=== PATIENT | male | born 1960 | race Caucasian/White ===

== ENCOUNTER 2021-07-18 14:08 | Inpatient (IN) ==
[2021-07-18] MEDS ORDERED: CeFAZolin Syr 2,000MG/20 ML 2,000 MG/20 ML SYRINGE IVPB ONE (14:36)
[2021-07-18] MEDS ORDERED: *HR* Succinylcholine 200 MG/10 ML VIAL IVP ONE (14:44)
[2021-07-18] MEDS ORDERED: *HR* FentaNYL (PF) 100 MCG/2 ML VIAL ONE ×2 (14:44→14:50)
[2021-07-18] MEDS ORDERED: *HR* Propofol 200 MG/20 ML VIAL IVP ONE ×2 (14:44→14:50)
[2021-07-18] MEDS ORDERED: Lidocaine -MPF 2% 2 ML VIAL ONE ×2 (14:44→14:52)
[2021-07-18] MEDS ORDERED: *HR* Midazolam HCl 2 MG/2 ML VIAL ONE ×2 (14:44→14:50)
[2021-07-18] MEDS ORDERED: *HR* Rocuronium Bromide 50 MG/5 ML VIAL ONE ×2 (14:44→14:52)
[2021-07-18] MEDS: Ringers Solution, Lactated 1,000 ML IVC SCH ×2 (14:45→18:37)
[2021-07-18] MEDS ORDERED: Acetaminophen IV 1,000 MG/100 ML BAG IVPB ONE (14:53)
[2021-07-18] MEDS ORDERED: Gabapentin 300 MG CAPSULE PO ONE (14:53)
[2021-07-18] MEDS ORDERED: Lidocaine -MPF 4% 5 ML AMPUL ONE (14:53)
[2021-07-18] MEDS ORDERED: Famotidine 20 MG/2 ML VIAL IVP ONE (14:53)
[2021-07-18] MEDS ORDERED: Ondansetron 4 MG/2 ML VIAL IVP PRN ×2 (15:01→20:48)
[2021-07-18] MEDS ORDERED: *HR* Heparin 5,000 UNIT/ML VIAL ONE (15:03)
[2021-07-18] MEDS ORDERED: Lidocaine 1% 20 ML MDV ONE (15:03)
[2021-07-18] MEDS ORDERED: Ondansetron 4 MG/2 ML VIAL ONE (16:34)
[2021-07-18] MEDS ORDERED: Sugammadex Sodium 200 MG/2 ML VIAL IV ONE (17:01)
[2021-07-18] MEDS: *HR* Labetalol 20 MG/4 ML SYRINGE IVP PRN ×4 (18:03→18:57)
[2021-07-18] MEDS: *HR* HYDROmorphone PF 0.5 MG/0.5 ML SYRINGE IVP PRN ×2 (18:05→18:42)
[2021-07-18] MEDS ORDERED: Naloxone 0.4 MG/ML INJ IVP PRN (20:48)
[2021-07-18] MEDS ORDERED: 0.9 % Sodium Chloride 1,000 ML IVC SCH (20:48)
[2021-07-18] MEDS ORDERED: Ipratropium/Albuterol Neb 3 ML ONE (20:57)
[2021-07-18] MEDS: Ipratropium/Albuterol Neb 3 ML IH SCH (20:59)
[2021-07-18] MEDS: Sennosides/Docusate Sodium TABLET PO SCH (21:21)
[2021-07-18] MEDS: Famotidine 20 MG TABLET PO SCH (21:21)
[2021-07-18] MEDS: *HR* LORazepam 0.5 MG TABLET PO SCH (21:21)
[2021-07-18] MEDS: Gabapentin 300 MG CAPSULE PO SCH (21:21)
[2021-07-18] MEDS: *HR* Heparin 5,000 UNIT/ML VIAL SQ SCH (21:22)
[2021-07-18] MEDS: *HR* HYDROcodone/Acet 5/325 mg TABLET PO PRN (21:22)
[2021-07-18] MEDS: rOPINIRole 0.25 MG TABLET PO SCH (21:23)
[2021-07-19] MEDS: Ipratropium/Albuterol Neb 3 ML IH SCH ×6 (00:10→20:16)
[2021-07-19 03:31] LABS: Hematocrit 42.4 % (37.5-50.1); Hemoglobin 13.7 g/dL (12.9-16.9); Mean Corpuscular HGB Conc 32.3 g/dL (31.6-35.5); Mean Corpuscular Hemoglobin 28.4 pg (28.0-33.3); Mean Corpuscular Volume 87.8 fL (83.0-100.0); Platelet Count 255 K/mcL (140-400); Red Blood Count 4.83 M/mcL (4.19-5.50); Red Cell Distribution Width 13.2 % (11.5-14.5); White Blood Count 9.3 K/mcL (4.3-11.1)
[2021-07-19] MEDS: *HR* HYDROcodone/Acet 5/325 mg TABLET PO PRN ×2 (03:36→08:29)
[2021-07-19 03:48] LABS: BUN/Creatinine Ratio 12 (6-26); Blood Urea Nitrogen 9 mg/dL (8-23); Carbon Dioxide 23 mEq/L (23-29); Chloride 103 mEq/L (98-107); Glucose 133 mg/dL (70-105); Osmolality,Calculated 285 (280-300); Potassium 4.5 mEq/L (3.5-5.1); Sodium 137 mEq/L (136-145); eGFR For African Americans > 60 (> 60); eGFR For Non-African Americans > 60 (> 60)
[2021-07-19] MEDS: *HR* Heparin 5,000 UNIT/ML VIAL SQ SCH ×3 (05:51→20:45)
[2021-07-19] MEDS: Gabapentin 300 MG CAPSULE PO SCH ×3 (08:31→20:47)
[2021-07-19] MEDS: Aspirin Enteric Coated 81 MG Tablet PO SCH (08:31)
[2021-07-19] MEDS: Famotidine 20 MG TABLET PO SCH ×2 (08:32→20:46)
[2021-07-19] MEDS: Sennosides/Docusate Sodium TABLET PO SCH ×2 (08:32→20:46)
[2021-07-19] MEDS: Metoprolol XL (24 HR) Succ 50 MG TAB.ER.24H PO SCH (08:32)
[2021-07-19] MEDS ORDERED: *HR* HYDROmorphone (PF) 1 MG/ML SYRINGE IVP STA (09:21)
[2021-07-19] MEDS: *HR* HYDROcodone/Acet 7.5/325 mg TABLET PO PRN (13:33)
[2021-07-19] MEDS: *HR* HYDROmorphone (PF) 1 MG/ML SYRINGE IVP PRN ×2 (15:29→20:46)
[2021-07-19] MEDS: rOPINIRole 0.25 MG TABLET PO SCH (20:46)
[2021-07-19] MEDS: *HR* LORazepam 0.5 MG TABLET PO SCH (20:47)
[2021-07-20] MEDS: Ipratropium/Albuterol Neb 3 ML IH SCH ×7 (00:12→23:39)
[2021-07-20] MEDS: *HR* HYDROcodone/Acet 7.5/325 mg TABLET PO PRN ×2 (04:04→13:01)
[2021-07-20] MEDS: *HR* Heparin 5,000 UNIT/ML VIAL SQ SCH (06:07)
[2021-07-20] MEDS: Aspirin Enteric Coated 81 MG Tablet PO SCH (07:40)
[2021-07-20] MEDS: Metoprolol XL (24 HR) Succ 50 MG TAB.ER.24H PO SCH (07:40)
[2021-07-20] MEDS: Famotidine 20 MG TABLET PO SCH ×2 (07:40→20:51)
[2021-07-20] MEDS: Gabapentin 300 MG CAPSULE PO SCH (07:40)
[2021-07-20] MEDS: Sennosides/Docusate Sodium TABLET PO SCH ×2 (07:40→20:51)
[2021-07-20] MEDS: *HR* HYDROmorphone (PF) 1 MG/ML SYRINGE IVP PRN (07:42)
[2021-07-20] MEDS: Gabapentin 400 MG CAPSULE PO SCH ×2 (15:47→20:52)
[2021-07-20] MEDS: rOPINIRole 0.25 MG TABLET PO SCH (20:50)
[2021-07-20] MEDS: *HR* LORazepam 0.5 MG TABLET PO SCH (20:51)
[2021-07-20] MEDS: *HR* OxyCODONE/APAP 10/325 TABLET PO PRN (20:52)
[2021-07-21] MEDS: Ipratropium/Albuterol Neb 3 ML IH SCH ×2 (03:36→07:49)
[2021-07-21 06:38] VITALS: BP 121/85; PULSE 81; TEMP 98.2
[2021-07-21 07:51] VITALS: O2SAT 97
[2021-07-21] MEDS: *HR* OxyCODONE/APAP 10/325 TABLET PO PRN (09:03)
[2021-07-21] MEDS: Gabapentin 400 MG CAPSULE PO SCH (09:03)
[2021-07-21] MEDS: Famotidine 20 MG TABLET PO SCH (09:04)
[2021-07-21] MEDS: Sennosides/Docusate Sodium TABLET PO SCH (09:04)
[2021-07-21] MEDS: Metoprolol XL (24 HR) Succ 50 MG TAB.ER.24H PO SCH (09:04)
[2021-07-21] MEDS: Aspirin Enteric Coated 81 MG Tablet PO SCH (09:04)
== END 2021-07-21 11:10 | disposition home or self-care (01) | DRG 168 ==
LOC: SAMDAY 14:08 → 2NNU 20:12
PROVIDERS: ADMIT Thoracic Surgery (Cardiothoracic Vascular Surgery); ATTEND Thoracic Surgery (Cardiothoracic Vascular Surgery)